=== PATIENT | male | born 1995 | race Caucasian/White ===

== ENCOUNTER 2023-02-18 23:58 | Emergency (ER) | payer MEDICAID, OTHER ==
[~2023-02-18] VITALS: Ht 172.7 cm; Wt 70.0 kg
[2023-02-19 00:07] VITALS: BP 145/99; PULSE 107; RESP 16; TEMP 98.1; O2SAT 97
== END 2023-02-19 08:33 | disposition home or self-care (01) ==
LOC: ER 23:58
DX: S09.90XA Unspecified injury of head, initial encounter (principal); T51.0X1A Toxic effect of ethanol, accidental (unintentional), initial encounter; W18.39XA Other fall on same level, initial encounter; Y93.89 Activity, other specified; Y92.89 Other specified places as the place of occurrence of the external cause; Y99.8 Other external cause status
CPT/HCPCS: 99284